=== PATIENT | female | born 2005 | race Two or more races ===

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

== ENCOUNTER → 2024-07-25 | Outpatient (CLI) | payer BC, MEDICAID, SELFPAY ==
[2024-07-25 12:47] LABS: Basophils # (Auto) 0.1 Thou/mm3 (0.0-0.2); Basophils % (Auto) 1 % (0-2.5); Eosinophils % (Auto) 9 % (0-10); Hematocrit 42.7 % (36.0-46.0); Hemoglobin 14.2 g/dL (12.0-16.0); Immature Granulocytes % (Auto) 0 % (0-0); Immature Granulocytes Auto 0.03 Thou/mm3 (0.00-0.00); Lymphocytes # (Auto) 3.5 Thou/mm3 (1.0-5.0); Lymphocytes % (Auto) 34 % (10-50); Mean Corpuscular HGB Conc 33.3 g/dl (31.0-37.0); Mean Corpuscular Hemoglobin 26.6 pg (25.0-35.0); Mean Corpuscular Volume 80 fL (80-100); Monocytes # (Auto) 0.6 Thou/mm3 (0.0-0.8); Monocytes % (Auto) 5 % (0-12); Neutrophils # (Auto) 5.2 Thou/mm3 (1.8-7.7); Neutrophils % (Auto) 50 % (37-80); Nucleated Red Blood Cell % 0 /100 WBC (0); Platelet Count 420 Thou/mm3 (140-440); RDW Standard Deviation 40.4 fL (36.4-46.3); Red Blood Count 5.34 Miln/mm3 (4.00-5.20); White Blood Count 10.4 Thou/mm3 (4.5-11.0)
[2024-07-25 12:55] LABS: Glucose Estimated Average 108 mg/dL (80-131); Hemoglobin A1C 5.4 % Hgb (4.8-6.0)
[2024-07-25 13:06] LABS: Alanine Aminotransferase 24 U/L (10-49); Albumin, Serum 4.7 gm/dL (3.5-5.0); Albumin/Globulin Ratio 1.3 (1.2-2.2); Alkaline Phosphatase 144 U/L (46-116); Anion Gap 9 (7-16); Aspartate Amino Transferase 19 U/L (0-34); BUN/Creatinine Ratio 9 Ratio (12-20); Bilirubin,Total 0.3 mg/dL (0.3-1.2); Blood Urea Nitrogen 6 mg/dL (9-23); Calcium 9.9 mg/dL (8.3-10.6); Calcium (Corrected) 9.9 mg/dL (8.5-10.1); Carbon Dioxide 24.9 mMol/L (20.0-31.0); Chloride 104 mMol/L (98-107); Creatinine (Component) 0.7 mg/dL (0.6-1.3); Globulin 3.7 gm/dL (2.3-3.5); Glucose 84 mg/dL (74-106); Osmolality,Calculated 272 (275-295); Sodium 138 mMol/L (136-145); Thyroid Stimulating Hormone 1.07 uIU/mL (0.55-4.78); Total Protein 8.4 gm/dL (5.7-8.2); eGFR > 60 See Note
[2024-07-25 13:21] LABS: Cardiac Risk Estimate 4.4 RATIO (3.7-5.6); Cholesterol 153 mg/dL (132-200); HDL Cholesterol 35 mg/dL (40-60); LDL Cholesterol,Calculated 93 mg/dL (0-130); Triglycerides 126 mg/dL (30-150)
[2024-07-25 17:42] LABS: Follicle Stimulating Hormone 6.45 mIU/mL (See Note)
[2024-07-31 06:56] LABS: DHEA Sulfate* 484 mcg/dL (51-321); Estradiol, Ultrasensitive* 22 pg/mL; Luteinizing Hormone* 2.1 mIU/mL; Prolactin* 4.6 ng/mL; Testosterone, Free,Dialysis 3.7 pg/mL (0.1-6.4); Testosterone, Total, Dialysis 25 ng/dL (2-45)
== END | disposition home or self-care (01) ==
PROVIDERS: PCP Internal Medicine; Referring Provider Internal Medicine; Visit Provider Internal Medicine
DX: E16.2 Hypoglycemia, unspecified (principal); N92.6 Irregular menstruation, unspecified; R63.5 Abnormal weight gain; Z13.6 Encounter for screening for cardiovascular disorders; Z79.899 Other long term (current) drug therapy
CPT/HCPCS: 36415; 80053; 80061; 82627; 82670; 83001; 83002; 83036; 84146; 84402; 84403; 84443; 85025

== ENCOUNTER → 2024-09-20 | Outpatient (CLI) | payer BC, MEDICAID, SELFPAY ==
--- NOTE | 2024-09-20 15:30 | XR_ITS ---
Examination: Transvaginal ultrasound of the pelvis, complete Technique: Transvaginal sonographic images pelvis performed using iqbal scale imaging Exam date and time: September 20, 2024 1525 hours INDICATIONS: Irregular heavy menses several years FINDINGS: Uterus 6.9 cm endometrial stripe 0.8 cm No uterine mass or intrauterine gestation Right ovary 4.3 cm arterial flow, 3.7 x 2.9 x 3.2 cm simple cyst Left ovary 2.4 cm arterial flow, small follicles IMPRESSION: Right ovarian simple cyst 3.7 x 2.9 x 3.2 cm.
== END | disposition home or self-care (01) ==
PROVIDERS: PCP Internal Medicine; Referring Provider Internal Medicine; Visit Provider Internal Medicine
DX: N83.291 Other ovarian cyst, right side (principal)
CPT/HCPCS: 76830